=== PATIENT | female | born 1965 | race Hispanic/Latino ===

== ENCOUNTER 2021-05-06 22:59 | Inpatient (IN) | payer SELFPAY ==
[2021-05-06 23:47] LABS: Arterial Blood Carboxyhemoglob 1.3 % (0-1.5); Blood Gas Oxyhemoglobin 89.9 % (94-97); Blood O2 Saturation 91.9 % (92-98.5)
[2021-05-07 00:03] LABS: Absolute Lymphocytes (CBC) 0.7 K/uL (0.7-4.9); Basophils % 0.4 % (0-1.3); Hematocrit 38.1 % (36.0-45.0); Lymphocytes % 10.1 % (15.3-44.8)
--- NOTE | 2021-05-07 00:22 | ER ---
Nurse's Notes [facility] Name: Cynthia Logan Age: 55 yrs Sex: Female : 1965 Arrival Date: 05/06/2021 Time: 23:02 Bed 7 Private MD: Diagnosis: Pneumonia due to SARS-associated coronavirus;Acute respiratory failure with hypoxia Presentation: 05/06 23:18 Chief complaint:. kg 23:20 Initial Sepsis Screen: Does the patient meet any 2 criteria? RR > 20 per min. No. bb Patient's initial sepsis screen is negative. Does the patient have a suspected source of infection? Yes: Productive cough/pneumonia. Risk Assessment: Do you want to hurt yourself or someone else? Patient reports no desire to harm self or others. Onset of symptoms was April 27, 2021. 23:20 Acuity: GENESIS 2 bb 23:32 Chief complaint: Patient states: SOB x 1 week. Diagnosed COVID positive 7 days ago. Pt bb is 57% on RA in triage. Coronavirus screen: Client denies travel out of the [place] in the last 14 days. At this time, unable to obtain information related to travel outside the [place] Client presents with at least one sign or symptom that may indicate coronavirus-19. Standard/surgical mask placed on the client. Provider contacted for isolation considerations. Client reports previous positive COVID test result. Date of collection: April 29, 2021. Ebola Screen: Patient negative for fever greater than or equal to 101.5 degrees Fahrenheit, and additional compatible Ebola Virus Disease symptoms Patient denies exposure to infectious person. Patient denies travel to an Ebola-affected area in the 21 days before illness onset. 23:32 Method Of Arrival: Wheelchair bb Triage Assessment: 23:39 General: Appears in no apparent distress. Behavior is calm, cooperative, quiet. Pain: bb Denies pain. Respiratory: Reports shortness of breath at rest on exertion cough that is productive, Onset: The symptoms/episode began/occurred gradually, the patient has severe shortness of breath. Historical: - Allergies: 23:39 PENICILLINS; bb - PMHx: 23:39 Hypertensive disorder; bb - PSHx: 23:39 None; bb - Immunization history:: Adult Immunizations not up to date, Client reports having NOT received the Covid vaccine. - Social history:: Smoking status: Patient denies any tobacco usage or history of. Screenin/12 00:54 Abuse screen: Denies threats or abuse. Denies injuries from another. Nutritional lp1 screening: No deficits noted. Tuberculosis screening: No symptoms or risk factors identified. Fall Risk None identified. Assessment: 00:15 General: Appears ill, Behavior is appropriate for age. Pain: Denies pain. Neuro: Level lp1 of Consciousness is awake, alert, obeys commands, Oriented to person, place, time, situation. Cardiovascular: Capillary refill < 3 seconds in bilateral fingers toes Patient's skin is warm and dry. Rhythm is regular. Respiratory: Airway is patent Trachea midline Respiratory effort is even, shallow, Breath sounds are diminished in left posterior lower lobe, right posterior middle lobe and right posterior lower lobe. GI: Abdomen is non-distended. : No signs and/or symptoms were reported regarding the genitourinary system. EENT: No signs and/or symptoms were reported regarding the EENT system. Derm: Skin is pink, warm \T\ dry. Musculoskeletal: No deficits noted. 00:52 Reassessment: Patient up to bsc; O2 at 91% on 35L high flow O2. lp1 Vital Signs: 05/06 23:20 BP 151 / 76; Pulse 90; Resp 25; Temp 99.6(O); Pulse Ox 57% on R/A; Weight 117.93 kg bb (R); Height 5 ft. 2 in. (157.48 cm) (R); 05/07 00:15 BP 117 / 65; Pulse 80; Resp 21; Pulse Ox 93% on NC; lp1 01:10 BP 124 / 69; Pulse 81; Resp 30; Pulse Ox 95% on NC; lp1 05/06 23:20 Body Mass Index 47.55 (117.93 kg, 157.48 cm) bb 00:15 high flow at 35% lp1 01:10 35% lp1 ED Course: 05/06 23:02 Patient arrived in ED. es 23:22 Pedro Perez PA is PHCP. jr8 23:22 Yousif Laguerre MD is Attending Physician. jr8 23:39 Triage completed. bb 23:39 Arm band placed on right wrist. bb 23:45 Inserted saline lock: 20 gauge in left antecubital area, using aseptic technique. Blood ds4 collected. 23:54 CXR XRAY In Process Unspecified. EDMS 05/07 00:00 Patient has correct armband on for positive identification. Placed in gown. Bed in low lp1 position. Call light in reach. compliance monitor on. Pulse ox on. NIBP on. 00:02 Sole Bell, RN is Primary Nurse. lp1 00:20 Catracho Tovar MD is Hospitalizing Provider. jr8 00:21 Hospitalizing Provider role handed off by Catracho Tovar MD jr8 00:21 Mark Jacome is Hospitalizing Provider. jr8 01:09 No provider procedures requiring assistance completed. Patient admitted, IV remains in lp1 place. 07:32 Primary Nurse role handed off by Sole Bell, TORREY bp 07:32 Reinaldo Milner, TORREY is Primary Nurse. bp 05/09 19:27 Primary Nurse role handed off by Reinaldo Milner, RN mw2 Administered Medications: No medications were administered Outcome: 05/07 00:21 Decision to Hospitalize by Provider. jr8 01:09 Condition: stable lp1 01:09 Instructed on the need for admit. 01:36 Admitted to ER Hold. Please see [facility] for further documentation. lp1 05/09 21:50 Patient left the ED. ea Signatures: Dispatcher [employer] EDCarmen Rahman Brenda, RN RN Sole Pina, RN RN lp1 Pedro Perez PA PA jr8 Alexander Wade ds4 Dominique Coats RN RN ea Peltier, Brian, RN RN Rosa Sky mw2 Johanna Cristina RN RN kg Corrections: (The following items were deleted from the chart) 05/07 00:54 00:52 Reassessment: Patient up to bsc; O2 at 91% lp1 lp1
--- NOTE | 2021-05-07 00:22 | EDPHYS ---
Physician Documentation [facility] Name: Cynthia Logan Age: 55 yrs Sex: Female : 1965 Arrival Date: 05/06/2021 Time: 23:02 Bed 7 Private MD: ED Physician Yousif Laguerre HPI: 05/06 23:57 This 55 yrs old Female presents to ER via Wheelchair with complaints of + for jr8 covid, Breathing Difficulty. 23:57 The patient has shortness of breath at rest. Onset: The symptoms/episode began/occurred jr8 gradually, 1 week(s) ago. Duration: The symptoms are continuous, and are steadily getting worse. The patient's shortness of breath is aggravated by light activity. Associated signs and symptoms: The patient has no apparent associated signs or symptoms. Severity of symptoms: At their worst the symptoms were moderate in the emergency department the symptoms are unchanged. The patient has not experienced similar symptoms in the past. The patient has not recently seen a physician. Patient stated that she was diagnosed about 1 week ago with Covid. Has had mild shortness of breath since then with on and off fevers and mild diarrhea. Stated that most symptoms have been relieved but continues to have now increased worsening of shortness of breath. Patient upon arrival to emergency room was 57% on room air. Historical: - Allergies: 23:39 PENICILLINS; bb - PMHx: 23:39 Hypertensive disorder; bb - PSHx: 23:39 None; bb - Immunization history:: Adult Immunizations not up to date, Client reports having NOT received the Covid vaccine. - Social history:: Smoking status: Patient denies any tobacco usage or history of. ROS: 23:57 Eyes: Negative for injury, pain, redness, and discharge, ENT: Negative for injury, jr8 pain, and discharge, Neck: Negative for injury, pain, and swelling, Cardiovascular: Negative for chest pain, palpitations, and edema, Abdomen/GI: Negative for abdominal pain, nausea, vomiting, and constipation. Positive for diarrhea Back: Negative for injury and pain, MS/Extremity: Negative for injury and deformity, Skin: Negative for injury, rash, and discoloration, Neuro: Negative for headache, weakness, numbness, tingling, and seizure. 23:57 Constitutional: Positive for fever. 23:57 Respiratory: Positive for dyspnea on exertion, shortness of breath. Exam: 23:57 ENT: Nares patent. No nasal discharge, no septal abnormalities noted. Tympanic jr8 membranes are normal and external auditory canals are clear. Oropharynx with no redness, swelling, or masses, exudates, or evidence of obstruction, uvula midline. Mucous membranes moist. Neck: Trachea midline, no thyromegaly or masses palpated, and no cervical lymphadenopathy. Supple, full range of motion without nuchal rigidity, or vertebral point tenderness. No Meningismus. Cardiovascular: Regular rate and rhythm with a normal S1 and S2. No gallops, murmurs, or rubs. Normal PMI, no JVD. No pulse deficits. Abdomen/GI: Soft, non-tender, with normal bowel sounds. No distension or tympany. No guarding or rebound. No evidence of tenderness throughout. Skin: Warm, dry with normal turgor. Normal color with no rashes, no lesions, and no evidence of cellulitis. MS/ Extremity: Pulses equal, no cyanosis. Neurovascular intact. Full, normal range of motion. Neuro: Awake and alert, GCS 15, oriented to person, place, time, and situation. Cranial nerves II-XII grossly intact. Motor strength 5/5 in all extremities. Sensory grossly intact. 23:57 Constitutional: The patient appears alert, awake, uncomfortable. 23:57 Respiratory: mild respiratory distress is noted, Respirations: tachypnea, that is mild, Breath sounds: are clear throughout. Vital Signs: 23:20 BP 151 / 76; Pulse 90; Resp 25; Temp 99.6(O); Pulse Ox 57% on R/A; Weight 117.93 kg bb (R); Height 5 ft. 2 in. (157.48 cm) (R); 05/07 00:15 BP 117 / 65; Pulse 80; Resp 21; Pulse Ox 93% on NC; lp1 01:10 BP 124 / 69; Pulse 81; Resp 30; Pulse Ox 95% on NC; lp1 05/06 23:20 Body Mass Index 47.55 (117.93 kg, 157.48 cm) bb 00:15 high flow at 35% lp1 01:10 35% lp1 MDM: 05/06 23:22 Patient medically screened. jr8 05/07 00:20 Data reviewed: vital signs, nurses notes, lab test result(s), EKG, radiologic studies, [facility] plain films. Data interpreted: Pulse oximetry: on room air is 57 %. Interpretation: hypoxia. Counseling: I had a detailed discussion with the patient and/or guardian regarding: the historical points, exam findings, and any diagnostic results supporting the discharge/admit diagnosis, lab results, radiology results, the need for further work-up and treatment in the hospital. 05/06 23:32 Order name: BMP; Complete Time: 00:48 05/06 23:32 Order name: Blood Culture Adult (2); Complete Time: 12:43 05/06 23:32 Order name: C-Reactive Protein; Complete Time: 00:48 05/06 23:32 Order name: CBC with Diff; Complete Time: 00:05 05/06 23:32 Order name: D-Dimer; Complete Time: 00:04 05/06 23:32 Order name: Ferritin; Complete Time: 00:48 05/06 23:32 Order name: LFT's; Complete Time: 00:48 05/06 23:32 Order name: Lactate; Complete Time: 00:40 05/06 23:32 Order name: PT-INR; Complete Time: 00:04 05/06 23:32 Order name: Procalcitonin; Complete Time: 00:48 05/06 23:32 Order name: Ptt, Activated; Complete Time: 00:04 05/06 23:32 Order name: Troponin (emerg Dept Use Only); Complete Time: 00:48 05/06 23:32 Order name: ABG; Complete Time: 00:00 05/07 00:52 Order name: COVID-19 : Document "Date of Symptom Onset" if Symptomatic. lp1 05/07 00:58 Order name: CORONAVIRUS EDHI 05/07 01:54 Order name: SARS-COV-2 RT PCR; Complete Time: 06:56 EDMS 05/07 06:08 Order name: Comprehensive Metabolic Panel; Complete Time: 06:56 EDMS 05/07 06:08 Order name: Phosphorus; Complete Time: 06:56 EDMS 05/07 06:08 Order name: Magnesium; Complete Time: 06:56 EDMS 05/07 06:12 Order name: Hemoglobin A1c; Complete Time: 06:56 EDMS 05/07 07:25 Order name: Procalcitonin; Complete Time: 12:43 EDMS 05/07 12:54 Order name: Glucose, Ancillary Testing; Complete Time: 12:43 EDMS 05/07 18:28 Order name: Glucose, Ancillary Testing; Complete Time: 12:43 EDMS 05/07 22:21 Order name: Glucose, Ancillary Testing; Complete Time: 12:43 EDMS 05/08 06:39 Order name: Comprehensive Metabolic Panel; Complete Time: 12:43 EDMS 05/08 06:39 Order name: Phosphorus; Complete Time: 12:43 EDMS 05/08 06:39 Order name: Lipid Profile; Complete Time: 12:43 EDMS 05/08 06:39 Order name: T4 Free; Complete Time: 12:43 EDMS 05/08 06:39 Order name: Magnesium; Complete Time: 12:43 EDMS 05/08 06:39 Order name: Ferritin; Complete Time: 12:43 EDMS 05/06 23:32 Order name: CXR XRAY; Complete Time: 12:43 jr8 05/06 23:32 Order name: EKG; Complete Time: 23:33 8 05/06 23:32 Order name: Cardiac monitoring; Complete Time: 23:48 8 05/06 23:32 Order name: Droplet/Contact Precautions; Complete Time: 23:48 8 05/06 23:32 Order name: EKG - Nurse/Tech; Complete Time: 23:48 8 05/06 23:32 Order name: IV Start; Complete Time: 23:48 8 05/06 23:32 Order name: Labs collected and sent; Complete Time: 23:48 8 05/06 23:32 Order name: O2 Per Protocol; Complete Time: 23:48 8 05/06 23:32 Order name: O2 Sat Monitoring; Complete Time: 23:49 8 05/07 00:34 Order name: CONS Physician Consult EDMS 05/08 06:41 Order name: C-Reactive Protein; Complete Time: 12:43 EDMS 05/08 06:41 Order name: Thyroid Stimulating Hormone; Complete Time: 12:43 EDMS 05/08 08:41 Order name: Glucose, Ancillary Testing; Complete Time: 12:43 EDMS 05/08 12:24 Order name: Glucose, Ancillary Testing; Complete Time: 12:43 EDMS 05/08 16:47 Order name: Glucose, Ancillary Testing; Complete Time: 12:43 EDMS 05/08 21:28 Order name: Glucose, Ancillary Testing; Complete Time: 12:43 EDMS 05/09 06:15 Order name: Basic Metabolic Panel; Complete Time: 12:43 EDMS 05/09 06:44 Order name: CBC with Automated Diff; Complete Time: 12:43 EDMS 05/09 08:59 Order name: RAD; Complete Time: 12:43 EDMS 05/09 09:08 Order name: Glucose, Ancillary Testing; Complete Time: 12:43 EDMS 05/09 14:20 Order name: Glucose, Ancillary Testing; Complete Time: 12:43 EDMS 05/09 16:53 Order name: Glucose, Ancillary Testing; Complete Time: 12:43 EDMS 05/09 16:54 Order name: Glucose, Ancillary Testing; Complete Time: 12:43 EDMS Administered Medications: No medications were administered Disposition Summary: 05/07/21 00:21 Hospitalization Ordered Hospitalization Status: Inpatient Admission 8 Provider: Mark Jacome [facility] Condition: Fair jr Problem: new jr8 Symptoms: have improved jr8 Bed/Room Type: Standard [facility] Location: Telemetry/MedSurg (Inpatient)(05/09/21 18:38) Room Assignment: 428(05/09/21 18:38) Diagnosis - Pneumonia due to SARS-associated coronavirus jr8 - Acute respiratory failure with hypoxia jr8 Forms: - Medication Reconciliation Form jr8 - SBAR form jr8 Addendum: 05/13/2021 07:18 Co-signature as Attending Physician, Yousif Laguerre MD. r n Signatures: Dispatcher [employer] [facility] Monica Larose RN RN dw Ballard, Brenda, RN RN bb Nieto, Roman, MD MD rn Roszak, Josh, PA PA 8 Priyanka Yepez RN RN tl1 Corrections: (The following items were deleted from the chart) 05/07 02:04 00:21 Telemetry/MedSurg (Inpatient) jr8 tl1 02:04 00:21 jr8 tl1 05/09 18:38 0812 02:04 [facility] ER HOLD tl1 dw 05/09 18:38 08/12 02:04 ERHOLD- tl1 dw
[2021-05-07 00:42] LABS: ALT/SGPT 37 U/L (12-78); AST/SGOT 43 U/L (15-37); Albumin 2.9 g/dL (3.4-5.0); Alkaline Phosphatase 147 U/L (45-117); BUN Blood Urea Nitrogen 21 mg/dL (7-18); Bicarbonate 23 mmol/L (21-32); Bilirubin Direct 0.2 mg/dL (0-0.2); Bilirubin Total 0.5 mg/dL (0.2-1.0); Ferritin 199.1 ng/mL (8-388); Glucose Level 200 mg/dL (74-106); Potassium 3.8 mmol/L (3.5-5.1); Sodium Level 132 mmol/L (136-145); Troponin (Emerg Dept Use Only) < 0.02 ng/mL (0.0-0.045)
--- NOTE | 2021-05-07 01:49 | P.HP ---
Certification for Inpatient Patient admitted to: Inpatient With expected LOS: >2 Midnights Patient will require the following post-hospital care: None Practitioner: I am a practitioner with admitting privileges, knowledge of patient current condition, hospital course, and medical plan of care. Services: Services provided to patient in accordance with Admission requirements found in Title 42 Section 412.3 of the Code of Federal Regulations Patient History Date of Service: 05/07/21 Reason for admission: covid pneumonia History of Present Illness: Ms. Logan is a 55 yo F with HTN who presents with 9 days of SOB and cough. She tested positive for COVID 7 days ago. Presented to the ED with sats 57% on room air. Now stable on HFNC. She reports fever, wheezing, pleuritic pain and diarrhea. NA 132, BUN 21, GFR 65, Glu 200, AST 43, alk phos 147, CRP 121, Albumin 2.9. - Past Medical/Surgical History Diabetic: No -: HTN -: cholecystectomy - Family History Mother -: Diabetes - Social History Smoking Status: Never smoker Alcohol use: No CD- Drugs: No Caffeine use: Yes Place of Residence: Home Review of Systems General: Fever Respiratory: Cough, Shortness of Breath, Pleuritic Pain, Wheezing Gastrointestinal: Diarrhea Physical Examination - Physical Exam General: Alert, In no apparent distress HEENT: Atraumatic, PERRLA, Mucous membr. moist/pink, EOMI, Sclerae nonicteric Neck: Supple, 2+ carotid pulse no bruit, No LAD, Without JVD or thyroid abnormality Respiratory: Diminished, Rhonchi/gurgles Cardiovascular: Regular rate/rhythm, Normal S1 S2 Gastrointestinal: Normal bowel sounds, No tenderness Musculoskeletal: No tenderness Integumentary: No rashes Neurological: Normal gait, Normal speech, Normal strength at 5/5 x4 extr, Normal tone, Normal affect Lymphatics: No axilla or inguinal lymphadenopathy - Studies Laboratory Data (last 24 hrs) 05/06/21 23:45: PT 11.5, INR 1.00, APTT 21.9 L 05/06/21 23:45: WBC 7.20, Hgb 12.4, Hct 38.1, Plt Count 181 05/06/21 23:45: Sodium 132 L, Potassium 3.8, BUN 21 H, Creatinine 0.90, Glucose 200 H, Total Bilirubin 0.5, AST 43 H, ALT 37, Alkaline Phosphatase 147 H Assessment and Plan - Problems (Diagnosis) (1) Pneumonia due to COVID-19 virus Current Visit: Yes Status: Acute (2) HTN (hypertension) Current Visit: Yes Status: Chronic Qualifiers: Hypertension type: primary hypertension Qualified Code(s): I10 - Essential (primary) hypertension - Plan pulm consult, respiratory therapy consulted continue O2, IV steroids, covid supplements, ivermectin requested barcitinib therapy from pharmacy BP stable, continue to monitor A1c pending, sliding scale insulin and accuchecks DVT ppx Discharge Plan: Home Plan to discharge in: Greater than 2 days - Advance Directives Does patient have a Living Will: No Does patient have a Durable POA for Healthcare: No - Code Status/Comfort Care Code Status Assessed: Yes (full code ) Critical Care: No Time Spent Managing Pts Care (In Minutes): 70
[2021-05-07] MEDS ORDERED: ALBUTEROL 2.5 MG/3 ML NEB SOL NEB PRN (05:06)
[2021-05-07] MEDS ORDERED: MELATONIN 5 MG TABLET PO PRN (05:06)
[2021-05-07] MEDS ORDERED: D50W 25 GM/50 ML SYRINGE IV PRN (05:06)
[2021-05-07] MEDS ORDERED: GLUCAGON 1 MG/VIAL IM PRN (05:06)
[2021-05-07] MEDS ORDERED: BENZONATATE 100 MG CAP PO PRN (05:06)
[2021-05-07] MEDS ORDERED: ACETAMINOPHEN 500 MG TAB PO PRN (05:06)
[2021-05-07] MEDS ORDERED: MORPHINE 2 MG/ML SYR IV PRN (05:06)
[2021-05-07] MEDS ORDERED: ONDANSETRON 4 MG/2 ML VIAL IV PRN (05:06)
[2021-05-07 06:08] LABS: Albumin 2.7 g/dL (3.4-5.0); Bilirubin Total 0.4 mg/dL (0.2-1.0); Magnesium 2.6 mg/dL (1.8-2.4); Phosphorus 3.2 mg/dL (2.5-4.9); Potassium 3.6 mmol/L (3.5-5.1); Protein, Total 7.5 g/dL (6.4-8.2)
[2021-05-07] MEDS ORDERED: BENZONATATE 100 MG CAP PO ONE (06:26)
[2021-05-07] MEDS ORDERED: ACETAMINOPHEN 500 MG TAB ONE (06:26)
[2021-05-07 06:37] VITALS: BMI 49.1
[2021-05-07] MEDS ORDERED: POTASSIUM 25 MEQ EFFERV TAB PO ONE (07:28)
[2021-05-07] MEDS: INSULIN -REGULAR HUMAN 50 UNIT/0.5 ML ML SQ SCH ×4 (07:30→22:15)
--- NOTE | 2021-05-07 07:30 | RAD REPORT ---
EXAM DESCRIPTION: RAD - Chest Single View - 05/06/2021 11:54 pm CLINICAL HISTORY: DYSPNEA COMPARISON: No comparisons FINDINGS: Low lung volumes with widespread bilateral airspace disease. Cardiomegaly.No acute osseous abnormality. No significant pleural effusions or pneumothorax. IMPRESSION: Widespread bilateral airspace disease could reflect multifocal pneumonia and/or edema.
[2021-05-07] MEDS: ASPIRIN EC 81 MG TAB PO SCH (09:00)
[2021-05-07] MEDS: VITAMIN D 1000 UNIT TAB PO SCH (09:00)
[2021-05-07] MEDS ORDERED: METHYLPREDNISOLONE 125 MG INJ IV SCH (09:00)
[2021-05-07] MEDS: BARICITINIB 2 MG TABLET PO SCH (09:00)
[2021-05-07] MEDS: ASCORBIC ACID 500 MG TABLET PO SCH ×4 (09:00→22:15)
[2021-05-07] MEDS: THIAMINE HCL 100 MG TABLET PO SCH (09:00)
[2021-05-07] MEDS: FAMOTIDINE 20 MG TAB PO SCH ×2 (09:00→22:15)
[2021-05-07] MEDS: ZINC SULFATE 220 MG CAP PO SCH (09:00)
[2021-05-07] MEDS: IVERMECTIN 3 MG TABLET PO SCH (10:00)
[2021-05-07] MEDS ORDERED: METHYLPREDNISOLONE 125 MG INJ ONE ×2 (10:07→15:59)
[2021-05-07] MEDS ORDERED: ASCORBIC ACID 500 MG TABLET ONE ×3 (10:08→22:36)
[2021-05-07] MEDS ORDERED: FAMOTIDINE 20 MG/2 ML VIAL IV ONE (10:08)
[2021-05-07] MEDS ORDERED: VITAMIN D 1000 UNIT TAB ONE (10:08)
[2021-05-07] MEDS ORDERED: POTASSIUM 25 MEQ EFFERV TAB ONE (10:08)
[2021-05-07] MEDS ORDERED: THIAMINE HCL 100 MG TABLET ONE (10:08)
--- NOTE | 2021-05-07 11:05 | P.CNS ---
Date of Consult: 05/07/21 Reason for Consult: resp failure fron COVID Chief Complaint: covid pneumonia History of Present Illness: AGe 55 AW COVID penumonia. Dx 7 days ago/ Stable on High concentration of FIO2 Allergies Penicillins Allergy (Severe, Verified 05/07/21 06:37) Anaphylaxis Home Medications: NK [No Home Meds] 05/07/21 - Past Medical/Surgical History Diabetic: No -: HTN -: cholecystectomy - Family History Mother Medical History: Diabetes - Social History Alcohol use: No CD- Drugs: No Caffeine use: Yes Place of Residence: Home Review of Systems General: Weakness Respiratory: Shortness of Breath Physical Examination Temp Pulse Resp BP Pulse Ox 98.9 F 79 21 H 139/73 91 05/07/21 04:00 05/07/21 04:00 05/07/21 04:00 05/07/21 04:00 05/07/21 04:00 General: Alert, Oriented x3, Cooperative Laboratory Data (last 24 hrs) 05/06/21 23:45: PT 11.5, INR 1.00, APTT 21.9 L 05/06/21 23:45: WBC 7.20, Hgb 12.4, Hct 38.1, Plt Count 181 05/06/21 23:45: Sodium 132 L, Potassium 3.8, BUN 21 H, Creatinine 0.90, Glucose 200 H, Total Bilirubin 0.5, AST 43 H, ALT 37, Alkaline Phosphatase 147 H - Problems (1) Pneumonia due to COVID-19 virus Current Visit: Yes Status: Acute Plan: age 55 AW COVID pneumonia/ meds labs reviewed/ Inc Steroids
[2021-05-07] MEDS: METHYLPREDNISOLONE 125 MG INJ IV SCH ×2 (14:00→22:15)
[2021-05-07] MEDS ORDERED: RIVAROXABAN 20 MG TABLET PO ONE (15:59)
[2021-05-07] MEDS ORDERED: ASPIRIN EC 81 MG TAB PO ONE (15:59)
[2021-05-07] MEDS: RIVAROXABAN 20 MG TABLET PO SCH (17:00)
[2021-05-07] MEDS ORDERED: RIVAROXABAN 10 MG TABLET PO SCH (17:00)
--- NOTE | 2021-05-07 18:44 | P.PN ---
Date of Service: 05/07/21 Patient seen and examined. She is currently on high-flow oxygen. Nonlabored breathing on examination. Diagnosis: COVID pneumonia Acute respiratory failure with hypoxia. Plan: COVID protocol with IV steroid, vitamin supplementation. Patient also started on Baracitinib. Wean oxygen as tolerated.
[2021-05-07] MEDS ORDERED: INSULIN -REGULAR HUMAN 50 UNIT/0.5 ML ML ONE (22:35)
[2021-05-07] MEDS ORDERED: METHYLPREDNISOLONE 40 MG INJ ONE (22:36)
[2021-05-07] MEDS ORDERED: FAMOTIDINE 20 MG TAB ONE (22:37)
[2021-05-08 06:39] LABS: Albumin 2.7 g/dL (3.4-5.0); Bilirubin Total 0.4 mg/dL (0.2-1.0); Ferritin 194.2 ng/mL (8-388); Magnesium 2.8 mg/dL (1.8-2.4); Phosphorus 3.9 mg/dL (2.5-4.9); Potassium 4.1 mmol/L (3.5-5.1); Protein, Total 7.8 g/dL (6.4-8.2)
[2021-05-08 06:40] LABS: Thyroid Stimulating Hormone 0.352 uIU/mL (0.360-3.740)
[2021-05-08] MEDS: INSULIN -REGULAR HUMAN 50 UNIT/0.5 ML ML SQ SCH ×4 (07:30→21:00)
[2021-05-08] MEDS: ASCORBIC ACID 500 MG TABLET PO SCH ×4 (09:00→21:00)
[2021-05-08] MEDS: FAMOTIDINE 20 MG TAB PO SCH ×2 (09:00→21:00)
[2021-05-08] MEDS: BARICITINIB 2 MG TABLET PO SCH (09:00)
[2021-05-08] MEDS: ASPIRIN EC 81 MG TAB PO SCH (09:00)
[2021-05-08] MEDS: VITAMIN D 1000 UNIT TAB PO SCH (09:00)
[2021-05-08] MEDS: THIAMINE HCL 100 MG TABLET PO SCH (09:00)
[2021-05-08] MEDS: METHYLPREDNISOLONE 125 MG INJ IV SCH ×3 (09:00→21:00)
[2021-05-08] MEDS: ZINC SULFATE 220 MG CAP PO SCH (09:00)
[2021-05-08] MEDS ORDERED: METHYLPREDNISOLONE 125 MG INJ ONE ×2 (10:18→17:59)
[2021-05-08] MEDS ORDERED: ZINC SULFATE 220 MG CAP ONE (10:19)
[2021-05-08] MEDS ORDERED: ASCORBIC ACID 500 MG TABLET ONE ×3 (10:19→22:13)
[2021-05-08] MEDS ORDERED: THIAMINE HCL 100 MG TABLET ONE (10:19)
[2021-05-08] MEDS ORDERED: ASPIRIN EC 81 MG TAB PO ONE (10:19)
[2021-05-08] MEDS ORDERED: FAMOTIDINE 20 MG TAB ONE ×2 (10:20→22:13)
[2021-05-08] MEDS ORDERED: VITAMIN D 1000 UNIT TAB ONE (10:20)
[2021-05-08] MEDS ORDERED: INSULIN -REGULAR HUMAN 50 UNIT/0.5 ML ML ONE ×3 (10:20→22:11)
--- NOTE | 2021-05-08 14:17 | P.PN ---
Subjective Date of Service: 05/08/21 Chief Complaint: covid pneumonia Patient currently on high-flow oxygen. Physical Examination - Vital Signs Temperature: 98.0 F Blood Pressure: 125/68 Pulse: 56 Respirations: 28 Pulse Ox (%): 97 - Physical Exam General: Alert, In no apparent distress Neck: JVD not distended Respiratory: Other (Nonlabored breathing) Cardiovascular: Regular rate/rhythm, Normal S1 S2 Gastrointestinal: Soft and benign, Non-distended Musculoskeletal: No swelling Integumentary: No rashes Neurological: Normal strength at 5/5 x4 extr - Studies Microbiology Data (last 24 hrs): 05/06/21 23:45 Blood - Blood Anaerobic Blood Culture - Final 05/06/21 23:45 Blood - Blood Anaerobic Blood Culture - Final Assessment And Plan - Current Problems (Diagnosis) (1) Acute respiratory failure with hypoxia Current Visit: Yes Status: Acute (2) Pneumonia due to COVID-19 virus Current Visit: Yes Status: Acute (3) HTN (hypertension) Current Visit: Yes Status: Chronic Qualifiers: Hypertension type: primary hypertension Qualified Code(s): I10 - Essential (primary) hypertension - Plan Patient requiring high-flow oxygen. Continue on COVID protocol with IV steroid, vitamin supplementation. Pulmonary is following. Patient on Baracitinib. Monitor inflammatory markers-ferritin and CRP. Titrate oxygen.
[2021-05-08] MEDS: RIVAROXABAN 20 MG TABLET PO SCH (17:00)
[2021-05-08] MEDS ORDERED: RIVAROXABAN 20 MG TABLET PO ONE (18:00)
--- NOTE | 2021-05-08 22:26 | P.PN ---
Subjective Date of Service: 05/08/21 Chief Complaint: covid pneumonia NC on High conc of Fio2 Review of Systems Respiratory: Shortness of Breath Physical Examination - Vital Signs Temperature: 98.0 F Blood Pressure: 122/59 Pulse: 58 Respirations: 21 Pulse Ox (%): 98 - Physical Exam General: Alert, In no apparent distress, Mild distress - Studies Microbiology Data (last 24 hrs): 05/06/21 23:45 Blood - Blood Anaerobic Blood Culture - Final 05/06/21 23:45 Blood - Blood Anaerobic Blood Culture - Final Assessment & Plan - Problems (Diagnosis) (1) Pneumonia due to COVID-19 virus Current Visit: Yes Status: Acute Plan: Resp failure ext covid penumoniaon steroids and barcitinib/ MAx therapy/ RA sat documented as 87%. Check sat on4 -6 l of NC O2
[2021-05-09 06:14] LABS: Potassium 3.9 mmol/L (3.5-5.1)
[2021-05-09 06:42] LABS: Absolute Lymphocytes (CBC) 0.7 K/uL (0.7-4.9); Basophils % 0.1 % (0-1.3); Hematocrit 36.1 % (36.0-45.0); Lymphocytes % 11.2 % (15.3-44.8); MPV 8.6 fL (7.6-11.3); RBC Red Blood Cell Count 4.83 M/uL (3.86-4.86)
[2021-05-09] MEDS ORDERED: ASCORBIC ACID 500 MG TABLET ONE ×3 (08:12→18:03)
[2021-05-09] MEDS ORDERED: ASPIRIN 81 MG CHEWABLE TABLET ONE (08:12)
[2021-05-09] MEDS ORDERED: ZINC SULFATE 220 MG CAP ONE (08:12)
[2021-05-09] MEDS ORDERED: THIAMINE HCL 100 MG TABLET ONE (08:12)
[2021-05-09] MEDS ORDERED: FAMOTIDINE 20 MG TAB ONE (08:13)
[2021-05-09] MEDS ORDERED: METHYLPREDNISOLONE 40 MG INJ ONE ×2 (08:13→14:52)
[2021-05-09] MEDS ORDERED: VITAMIN D 1000 UNIT TAB ONE (08:13)
--- NOTE | 2021-05-09 08:59 | RAD REPORT ---
EXAM DESCRIPTION: RAD - Chest Single View - 05/09/2021 7:01 am CLINICAL HISTORY: penumonia COMPARISON: May 06 TECHNIQUE: AP portable chest image was obtained 05/09/2021 7:01 am . FINDINGS: Extensive bilateral pneumonia findings are present. Aeration has improved slightly from th e comparison. Extent of lung disease is not clearly different from prior study. Trachea is midline. Heart and vasculature are normal. No measurable pleural effusion and no pneumotho rax. No acute bony abnormality seen. No acute aortic findings suspected. IMPRESSION: Extensive bilateral pneumonia findings not substantially different from comparison.
[2021-05-09] MEDS: METHYLPREDNISOLONE 125 MG INJ IV SCH ×3 (09:00→22:12)
[2021-05-09] MEDS: VITAMIN D 1000 UNIT TAB PO SCH (09:00)
[2021-05-09] MEDS: FAMOTIDINE 20 MG TAB PO SCH ×2 (09:00→22:11)
[2021-05-09] MEDS: BARICITINIB 2 MG TABLET PO SCH (09:00)
[2021-05-09] MEDS: THIAMINE HCL 100 MG TABLET PO SCH (09:00)
[2021-05-09] MEDS: ASPIRIN EC 81 MG TAB PO SCH (09:00)
[2021-05-09] MEDS: ZINC SULFATE 220 MG CAP PO SCH (09:00)
[2021-05-09] MEDS: ASCORBIC ACID 500 MG TABLET PO SCH ×4 (09:00→22:12)
[2021-05-09] MEDS: INSULIN -REGULAR HUMAN 50 UNIT/0.5 ML ML SQ SCH ×4 (09:20→22:12)
[2021-05-09] MEDS ORDERED: INSULIN -REGULAR HUMAN 50 UNIT/0.5 ML ML ONE ×3 (09:28→18:05)
[2021-05-09] MEDS: IVERMECTIN 3 MG TABLET PO SCH (10:00)
[2021-05-09] MEDS ORDERED: D50W 25 GM/50 ML SYRINGE IV PRN (13:31)
[2021-05-09] MEDS ORDERED: GLUCAGON 1 MG/VIAL IM PRN (13:31)
--- NOTE | 2021-05-09 13:35 | P.PN ---
Subjective Date of Service: 05/09/21 Chief Complaint: covid pneumonia Patient currently on high-flow oxygen but FiO2 and flow rates are trending down. She has no complain. She denies shortness of breath. Physical Examination - Vital Signs Temperature: 98.1 F Blood Pressure: 121/53 Pulse: 62 Respirations: 18 Pulse Ox (%): 86 - Physical Exam General: Alert, In no apparent distress, Oriented x3 Neck: JVD not distended Respiratory: Other (Nonlabored breathing) Cardiovascular: Regular rate/rhythm, Normal S1 S2 Gastrointestinal: Soft and benign, Non-distended Musculoskeletal: No swelling Integumentary: No rashes Neurological: Normal strength at 5/5 x4 extr Assessment And Plan - Current Problems (Diagnosis) (1) Acute respiratory failure with hypoxia Current Visit: Yes Status: Acute (2) Pneumonia due to COVID-19 virus Current Visit: Yes Status: Acute (3) HTN (hypertension) Current Visit: Yes Status: Chronic Qualifiers: Hypertension type: primary hypertension Qualified Code(s): I10 - Essential (primary) hypertension - Plan Wean FiO2 and flow rates as tolerated Continue on COVID protocol with IV steroid, vitamin supplementation. Pulmonary is following. Patient on Baracitinib. Monitor inflammatory markers-ferritin and CRP. Continue sliding scale scale. Added Lantus insulin to improve her blood sugar readings.
[2021-05-09] MEDS ORDERED: INSULIN GLARGINE 100 UNITS/ML SQ SCH (17:00)
[2021-05-09] MEDS: RIVAROXABAN 20 MG TABLET PO SCH (17:00)
[2021-05-09] MEDS ORDERED: RIVAROXABAN 20 MG TABLET PO ONE (18:04)
[2021-05-09] MEDS ORDERED: INSULIN GLARGINE 100 UNITS/ML SQ ONE (18:04)
[2021-05-09] MEDS ORDERED: INSULIN -REGULAR HUMAN 50 UNIT/0.5 ML ML SQ SCH (23:09)
[2021-05-10] MEDS: INSULIN -REGULAR HUMAN 50 UNIT/0.5 ML ML SQ SCH ×4 (09:06→21:40)
[2021-05-10] MEDS: ZINC SULFATE 220 MG CAP PO SCH (09:07)
[2021-05-10] MEDS: VITAMIN D 1000 UNIT TAB PO SCH (09:08)
[2021-05-10] MEDS: FAMOTIDINE 20 MG TAB PO SCH ×2 (09:08→21:40)
[2021-05-10] MEDS: THIAMINE HCL 100 MG TABLET PO SCH (09:09)
[2021-05-10] MEDS: ASPIRIN EC 81 MG TAB PO SCH (09:09)
[2021-05-10] MEDS: ASCORBIC ACID 500 MG TABLET PO SCH ×4 (09:09→21:40)
[2021-05-10] MEDS: METHYLPREDNISOLONE 125 MG INJ IV SCH ×3 (09:10→21:40)
[2021-05-10] MEDS: BARICITINIB 2 MG TABLET PO SCH (12:38)
[2021-05-10] MEDS ORDERED: FUROSEMIDE 20 MG/ 2ML VIAL IV ONE (14:02)
--- NOTE | 2021-05-10 14:04 | P.PN ---
Subjective Date of Service: 05/10/21 Chief Complaint: covid pneumonia Improving/ Still has highconc of O2 Review of Systems General: Weakness Respiratory: Shortness of Breath Physical Examination - Vital Signs Temperature: 98.2 F Blood Pressure: 172/84 Pulse: 66 Respirations: 38 Pulse Ox (%): 95 - Physical Exam General: Alert, Cooperative Assessment & Plan - Problems (Diagnosis) (1) Pneumonia due to COVID-19 virus Current Visit: Yes Status: Acute Plan: Still onhigh concentration of Fio2/ on Max Tx/labsrev/Lasix x1/ CXRY worse?
[2021-05-10] MEDS: RIVAROXABAN 20 MG TABLET PO SCH (16:43)
[2021-05-10] MEDS: INSULIN GLARGINE 100 UNITS/ML SQ SCH (16:44)
[2021-05-11 05:34] LABS: Absolute Lymphocytes (CBC) 0.6 K/uL (0.7-4.9); Basophils % 0.1 % (0-1.3); Hematocrit 36.7 % (36.0-45.0); Lymphocytes % 6.4 % (15.3-44.8); MPV 8.2 fL (7.6-11.3); RBC Red Blood Cell Count 4.91 M/uL (3.86-4.86)
[2021-05-11 05:52] LABS: Potassium 4.2 mmol/L (3.5-5.1)
[2021-05-11] MEDS: INSULIN -REGULAR HUMAN 50 UNIT/0.5 ML ML SQ SCH ×4 (08:12→20:35)
[2021-05-11] MEDS: FAMOTIDINE 20 MG TAB PO SCH ×2 (08:13→20:38)
[2021-05-11] MEDS: ASPIRIN EC 81 MG TAB PO SCH (08:13)
[2021-05-11] MEDS: ZINC SULFATE 220 MG CAP PO SCH (08:14)
[2021-05-11] MEDS: METHYLPREDNISOLONE 125 MG INJ IV SCH ×3 (08:14→20:38)
[2021-05-11] MEDS: BARICITINIB 2 MG TABLET PO SCH (08:14)
[2021-05-11] MEDS: THIAMINE HCL 100 MG TABLET PO SCH (08:14)
[2021-05-11] MEDS: VITAMIN D 1000 UNIT TAB PO SCH (08:14)
[2021-05-11] MEDS: ASCORBIC ACID 500 MG TABLET PO SCH ×4 (08:15→20:38)
[2021-05-11 09:48] LABS: Blood Morphology Comment NOT SEEN (NOT SEEN); Platelet Estimate ADEQ
[2021-05-11] MEDS: RIVAROXABAN 20 MG TABLET PO SCH (16:35)
[2021-05-11] MEDS: INSULIN GLARGINE 100 UNITS/ML SQ SCH (16:36)
--- NOTE | 2021-05-11 17:25 | P.PN ---
Subjective Date of Service: 05/10/21 Chief Complaint: covid pneumonia No changes from yesterday. No change in FiO2 requirement on the high-flow. She has no complain. Physical Examination - Vital Signs Temperature: 97.9 F Blood Pressure: 139/64 Pulse: 68 Respirations: 18 Pulse Ox (%): 92 - Physical Exam General: Alert, In no apparent distress Neck: JVD not distended Respiratory: Other (Nonlabored breathing.) Cardiovascular: No edema, Regular rate/rhythm, Normal S1 S2 Gastrointestinal: Soft and benign, Non-distended Musculoskeletal: No swelling Integumentary: No rashes Neurological: Normal strength at 5/5 x4 extr Assessment And Plan - Current Problems (Diagnosis) (1) Acute respiratory failure with hypoxia Current Visit: Yes Status: Acute (2) Pneumonia due to COVID-19 virus Current Visit: Yes Status: Acute (3) HTN (hypertension) Current Visit: Yes Status: Chronic Qualifiers: Hypertension type: primary hypertension Qualified Code(s): I10 - Essential (primary) hypertension - Plan No major improvement over the last few days. Wean FiO2 and flow rates as tolerated Continue on COVID protocol with IV steroid, vitamin supplementation. Pulmonary is following. Patient on Baracitinib. Monitor inflammatory markers-ferritin and CRP. Continue sliding scale scale. Titrate Lantus insulin.
--- NOTE | 2021-05-11 17:37 | P.PN ---
Subjective Date of Service: 05/11/21 Chief Complaint: covid pneumonia No change in FiO2 requirement on the high-flow over the past few days. She has no complain. Physical Examination - Vital Signs Temperature: 97.9 F Blood Pressure: 139/64 Pulse: 68 Respirations: 18 Pulse Ox (%): 92 - Physical Exam General: Alert, In no apparent distress Neck: JVD not distended Respiratory: Other (Nonlabored breathing) Cardiovascular: No edema, Regular rate/rhythm, Normal S1 S2 Gastrointestinal: Soft and benign, Non-distended Musculoskeletal: No swelling Integumentary: No rashes Neurological: Normal strength at 5/5 x4 extr Assessment And Plan - Current Problems (Diagnosis) (1) Acute respiratory failure with hypoxia Current Visit: Yes Status: Acute (2) Pneumonia due to COVID-19 virus Current Visit: Yes Status: Acute (3) HTN (hypertension) Current Visit: Yes Status: Chronic Qualifiers: Hypertension type: primary hypertension Qualified Code(s): I10 - Essential (primary) hypertension - Plan Patient not improving over the last few days Wean FiO2 and flow rates as tolerated Continue on COVID protocol with IV steroid, vitamin supplementation. Continue Baracitinib. Monitor inflammatory markers-ferritin and CRP. Continue sliding scale scale. Titrate Lantus insulin.
[2021-05-12 06:04] LABS: C-Reactive Protein 9.05 mg/L (<3.00); Ferritin 98.8 ng/mL (8-388)
[2021-05-12] MEDS: VITAMIN D 1000 UNIT TAB PO SCH (08:46)
[2021-05-12] MEDS: ASPIRIN EC 81 MG TAB PO SCH (08:46)
[2021-05-12] MEDS: ASCORBIC ACID 500 MG TABLET PO SCH ×4 (08:47→21:00)
[2021-05-12] MEDS: INSULIN -REGULAR HUMAN 50 UNIT/0.5 ML ML SQ SCH ×4 (08:47→20:58)
[2021-05-12] MEDS: ZINC SULFATE 220 MG CAP PO SCH (08:47)
[2021-05-12] MEDS: THIAMINE HCL 100 MG TABLET PO SCH (08:47)
[2021-05-12] MEDS: METHYLPREDNISOLONE 125 MG INJ IV SCH ×3 (08:47→20:59)
[2021-05-12] MEDS: FAMOTIDINE 20 MG TAB PO SCH ×2 (08:47→20:59)
[2021-05-12] MEDS: BARICITINIB 2 MG TABLET PO SCH (08:48)
--- NOTE | 2021-05-12 08:58 | RAD REPORT ---
EXAM DESCRIPTION: RAD - Chest Single View - 05/12/2021 4:39 am CLINICAL HISTORY: hypoxia, covid Chest pain. COMPARISON: Chest Single View dated 05/09/2021; Chest Single View dated 05/06/2021 FINDINGS: Portable technique limits examination quality. Since 05/09/2021, extensive bilateral pulmonary opacities appear slightly progressive since prior hammad dy. The heart is mildly enlarged in size. No displaced fractures. IMPRESSION: Mild worsening in lung aeration is seen since comparative study.
--- NOTE | 2021-05-12 14:38 | P.PN ---
Subjective Date of Service: 05/12/21 Chief Complaint: covid pneumonia Subjective: Improving (less o2 requirement, feeling better, tolerating food, appetite ok, on 15L HFNC) Review of Systems 10-point ROS is otherwise unremarkable Physical Examination - Vital Signs Temperature: 98.8 F Blood Pressure: 167/83 Pulse: 69 Respirations: 18 Pulse Ox (%): 90 - Studies Microbiology Data (last 24 hrs): 05/06/21 23:45 Blood - Blood Aerobic Blood Culture - Final No growth in 5 days. 05/06/21 23:45 Blood - Blood Anaerobic Blood Culture - Final 05/06/21 23:45 Blood - Blood Aerobic Blood Culture - Final No growth in 5 days. 05/06/21 23:45 Blood - Blood Anaerobic Blood Culture - Final Assessment & Plan Physician Review Additional Text: Physical Exam General: Alert, In no apparent distress HEENT: Normal conjunctiva, sclera anicteric Respiratory: mild labored respirations on 15L HFNC Cardiovascular: No edema, Regular rate/rhythm, Normal S1 S2 Gastrointestinal: Soft and benign, Non-distended Musculoskeletal: No joint swelling Integumentary: No rashes Problem List Acute hypoxemic respiratory failure secondary to COVID-19 pneumonia Hypertension Diabetes mellitus type 2, dex-[id number]; new diagnosis Patient with some slight improvements today Continue treatments per Covid protocol, with IV steroids, vitamin supplementation, oxygen supplementation Pulmonology consulted Wean FiO2 and flow rates as tolerated Continue Baracitinib. Monitor inflammatory markers-ferritin and CRP. Continue sliding scale scale. Titrate Lantus again A1c: 8.9, steroid-induced hyperglycemia VTE: Dispo: anticipate dc home with O2 in ~3-4 days Time Spent Managing Pts Care (In Minutes): 35
[2021-05-12] MEDS ORDERED: INSULIN GLARGINE 100 UNITS/ML SQ SCH (17:00)
[2021-05-12] MEDS: RIVAROXABAN 20 MG TABLET PO SCH (17:39)
[2021-05-12 18:32] VITALS: O2SAT 82
[2021-05-12] MEDS ORDERED: INSULIN -REGULAR HUMAN 50 UNIT/0.5 ML ML IV ONE (21:00)
[2021-05-13 05:57] LABS: C-Reactive Protein 10.5 mg/L (<3.00); Ferritin 89.5 ng/mL (8-388)
[2021-05-13 05:58] LABS: Potassium 4.6 mmol/L (3.5-5.1)
[2021-05-13 05:59] LABS: Absolute Lymphocytes (CBC) 0.5 K/uL (0.7-4.9); Basophils % 0.1 % (0-1.3); Hematocrit 39.8 % (36.0-45.0); Lymphocytes % 3.4 % (15.3-44.8); MPV 8.9 fL (7.6-11.3); RBC Red Blood Cell Count 5.28 M/uL (3.86-4.86)
--- NOTE | 2021-05-13 06:29 | P.PN ---
Subjective Date of Service: 05/13/21 Chief Complaint: covid pneumonia Physical Examination - Vital Signs Temperature: 98.4 F Blood Pressure: 155/72 Pulse: 79 Respirations: 18 Pulse Ox (%): 85 Assessment & Plan Physician Review Additional Text: Physical Exam General: Alert, In no apparent distress HEENT: Normal conjunctiva, sclera anicteric Respiratory: mild labored respirations on 15L HFNC Cardiovascular: No edema, Regular rate/rhythm, Normal S1 S2 Gastrointestinal: Soft and benign, Non-distended Musculoskeletal: No joint swelling Integumentary: No rashes Problem List Acute hypoxemic respiratory failure secondary to COVID-19 pneumonia Hypertension Diabetes mellitus type 2, [id number]; new diagnosis Patient with some slight improvements today Continue treatments per Covid protocol, with IV steroids, vitamin supplementation, oxygen supplementation Pulmonology consulted Wean FiO2 and flow rates as tolerated Continue Baracitinib. Monitor inflammatory markers-ferritin and CRP. Continue sliding scale scale. Titrate Lantus again A1c: 8.9, steroid-induced hyperglycemia VTE: Dispo: anticipate dc home with O2 in ~3-4 days
[2021-05-13 08:26] VITALS: BP 148/69; TEMP 99
[2021-05-13] MEDS ORDERED: ONDANSETRON 4 MG/2 ML VIAL IV PRN (11:19)
[2021-05-13] MEDS ORDERED: ACETAMINOPHEN 500 MG TAB PO PRN (11:19)
[2021-05-13] MEDS ORDERED: BENZONATATE 100 MG CAP PO PRN (11:22)
[2021-05-13] MEDS ORDERED: GLUCAGON 1 MG/VIAL IM PRN (11:25)
[2021-05-13] MEDS ORDERED: MELATONIN 5 MG TABLET PO PRN (11:25)
[2021-05-13] MEDS ORDERED: D50W 25 GM/50 ML SYRINGE IV PRN (11:25)
[2021-05-13] MEDS ORDERED: MORPHINE 2 MG/ML SYR IV PRN (11:27)
[2021-05-13] MEDS ORDERED: INSULIN -REGULAR HUMAN 50 UNIT/0.5 ML ML SQ SCH (11:30)
--- NOTE | 2021-05-13 11:32 | P.HP ---
Certification for Inpatient Patient admitted to: Inpatient With expected LOS: >2 Midnights Practitioner: I am a practitioner with admitting privileges, knowledge of patient current condition, hospital course, and medical plan of care. Services: Services provided to patient in accordance with Admission requirements found in Title 42 Section 412.3 of the Code of Federal Regulations Patient History Date of Service: 05/13/21 Reason for admission: covid pneumonia History of Present Illness: Patient is a 55-year-old female with a past medical history significant for hypertension, DM 2 who presents with complaint of shortness of breath. Patient was admitted for COVID-19 pneumonia and patient left AMA this morning. Daughter spoke to patient and patient decided to return back to the ER for continuation of medical treatment. Patient denies any other signs or symptoms. Shortness of breath is aggravated by exertion and relieved by nothing. Allergies Penicillins Allergy (Severe, Verified 05/07/21 06:37) Anaphylaxis Home medications list reviewed: Yes Home Medications: NK [No Home Meds] 05/07/21 - Past Medical/Surgical History Has patient received pneumonia vaccine in the past: No Diabetic: No -: HTN -: cholecystectomy - Family History Mother -: Diabetes - Social History Smoking Status: Never smoker Alcohol use: No CD- Drugs: No Caffeine use: Yes Place of Residence: Home Review of Systems General: Unremarkable Eyes: Unremarkable ENT: Unremarkable Respiratory: Cough, Shortness of Breath, SOB with Excertion Cardiovascular: Unremarkable Gastrointestinal: Unremarkable Genitourinary: Unremarkable Musculoskeletal: Unremarkable Integumentary: Unremarkable Neurological: As per HPI Physical Examination - Vital Signs Temperature: 99.0 F Blood Pressure: 148/69 Pulse: 76 Respirations: 20 Pulse Ox (%): 88 - Physical Exam General: Alert, In no apparent distress, Oriented x3 HEENT: Atraumatic, PERRLA, Mucous membr. moist/pink, EOMI, Sclerae nonicteric Neck: Supple, 2+ carotid pulse no bruit, No LAD, Without JVD or thyroid abnormality Respiratory: Diminished Cardiovascular: Regular rate/rhythm, Normal S1 S2 Gastrointestinal: Normal bowel sounds, No tenderness Musculoskeletal: No clubbing, No tenderness Integumentary: No rashes, No breakdown Neurological: Normal gait, Normal speech, Normal tone, Normal affect Lymphatics: No axilla or inguinal lymphadenopathy External genitalia: Deferred Rectal: Deferred Assessment and Plan - Plan --Acute hypoxemic respiratory failure with hypoxia. Secondary to COVID-19 pneumonia. Continue baricitinib, high-dose steroids, O2 therapy and oral supplements. Further management per lens grinder --COVID-19 pneumonia. Continue current treatment regimen. --Hypertension. Stable. Will manage BP with labetalol as needed. --Diabetes mellitus type 2, [id number]. BS monitoring with s\s and Lantus --DVT prophylaxis with Xarelto. I have had discussion about advanced directives with the patient during this hospital admission. Addressed code status and /or goals of care. Spent more than 15 minutes. Case discussed withpatient and nurse. Discharge Plan: Home Plan to discharge in: 48 Hours - Advance Directives Does patient have a Living Will: No Does patient have a Durable POA for Healthcare: No - Code Status/Comfort Care Code Status Assessed: Yes Code Status: Full Code Physician Review: Patient Assessed, Agree with Above Assessment and Plan Critical Care: No
[2021-05-13] MEDS ORDERED: LABETALOL 20 MG/4ML SYRINGE IV PRN (11:43)
[2021-05-13] MEDS ORDERED: ASCORBIC ACID 500 MG TABLET PO SCH (13:00)
[2021-05-13] MEDS ORDERED: BARICITINIB 2 MG TABLET PO SCH (14:00)
[2021-05-13] MEDS ORDERED: METHYLPREDNISOLONE 125 MG INJ IV SCH (14:00)
--- NOTE | 2021-05-13 16:14 | P.DS ---
Admission Date: 05/07/21 Discharge Date: 05/13/21 Disposition: AMA-LEFT AGAINST MEDICAL ADVIC Reason for Admission: covid pneumonia Hospital Course: Patient presented with COVID-19 pneumonia. Had gradual improvement of symptoms. Weaned down to 6L NC. On morning of 05/13, patient was adamant on leaving AGAINST MEDICAL ADVICE. Patient's nurse and myself spent over 30 minutes trying to convince the patient to stay. Attempted to call patient's family, however had no answer. Patient was demanding to leave. Explained the risk of worsening COVID-19 pneumonia and the possibility of . I explained that a more unable to set up home oxygen for she leaves this way. I stated that she would likely be discharged in the next 1 to 2 days if she continued to improve as she had been. Patient expressed understanding. She stated she was tired and wanted to be home. She signed the AMA paperwork and left. Vital Signs/Physical Exam: Temp Pulse Resp BP Pulse Ox 99.0 F 76 20 148/69 H 88 L 05/13/21 11:57 05/13/21 11:57 05/13/21 11:57 05/13/21 11:57 05/13/21 11:57 General: Alert, In no apparent distress, Oriented x3 HEENT: Mucous membr. moist/pink, Sclerae nonicteric Respiratory: Other (nonlabored on 6L NC) Cardiovascular: No edema, Regular rate/rhythm Gastrointestinal: Soft and benign, Non-distended, No tenderness Musculoskeletal: No tenderness Integumentary: No rashes Laboratory Data at Discharge: WBC 13.40 K/uL (4.3-10.9) H D 05/13/21 04:58 Hgb 12.8 g/dL (12.0-15.0) 05/13/21 04:58 Hct 39.8 % (36.0-45.0) 05/13/21 04:58 Plt Count 406 K/uL (152-406) D 05/13/21 04:58 PT 11.5 SECONDS (9.5-12.5) 05/06/21 23:45 INR 1.00 05/06/21 23:45 APTT 21.9 SECONDS (24.3-36.9) L 05/06/21 23:45 Sodium 137 mmol/L (136-145) 05/13/21 04:58 Potassium 4.6 mmol/L (3.5-5.1) 05/13/21 04:58 BUN 21 mg/dL (7-18) H 05/13/21 04:58 Creatinine 0.70 mg/dL (0.55-1.3) 05/13/21 04:58 Glucose 241 mg/dL (74-106) H 05/13/21 04:58 Phosphorus 3.9 mg/dL (2.5-4.9) 05/08/21 05:48 Magnesium 2.8 mg/dL (1.8-2.4) H 05/08/21 05:48 Total Bilirubin 0.4 mg/dL (0.2-1.0) 05/08/21 05:48 AST 29 U/L (15-37) 05/08/21 05:48 ALT 32 U/L (12-78) 05/08/21 05:48 Alkaline Phosphatase 143 U/L (45-117) H 05/08/21 05:48 Triglycerides 144 mg/dL (<150) 05/08/21 05:48 Cholesterol 87 mg/dL (<200) 05/08/21 05:48 HDL Cholesterol 22 mg/dL (40-60) L 05/08/21 05:48 Cholesterol/HDL Ratio 3.95 05/08/21 05:48 Home Medications: NK [No Home Meds] 05/07/21 Followup: NONE,NONE [Primary Care Provider] - Time spent managing pt's care (in minutes): 40
[2021-05-13] MEDS ORDERED: RIVAROXABAN 20 MG TABLET PO SCH (17:00)
[2021-05-13] MEDS ORDERED: FAMOTIDINE 20 MG TAB PO SCH (21:00)
[2021-05-13] MEDS ORDERED: INSULIN GLARGINE 100 UNITS/ML SQ SCH (21:00)
[2021-05-14] MEDS ORDERED: ENOXAPARIN 40 MG/0.4 ML SQ SCH (09:00)
[2021-05-14] MEDS ORDERED: THIAMINE HCL 100 MG TABLET PO SCH (09:00)
[2021-05-14] MEDS ORDERED: ZINC SULFATE 220 MG CAP PO SCH (09:00)
[2021-05-14] MEDS ORDERED: ASPIRIN 81 MG CHEWABLE TABLET PO SCH (09:00)
[2021-05-14] MEDS ORDERED: VITAMIN D 1000 UNIT TAB PO SCH (09:00)
== END 2021-05-13 07:55 | disposition left against medical advice (07) | DRG 177 ==
LOC: ER 22:59 → ERHOLD 05-07 00:37 → 4TH 05-09 19:58
PROVIDERS: ADMIT Internal Medicine; ATTEND Internal Medicine
DX: U07.1 COVID-19 (principal); J12.82 Pneumonia due to coronavirus disease 2019; J96.01 Acute respiratory failure with hypoxia; I10 Essential (primary) hypertension; E11.65 Type 2 diabetes mellitus with hyperglycemia; T38.0X5A Adverse effect of glucocorticoids and synthetic analogues, initial encounter; Z53.29 Procedure and treatment not carried out because of patient's decision for other reasons; Z88.0 Allergy status to penicillin
CPT/HCPCS: 36415; 71045; 80048; 80053; 80061; 80076; 82728; 82805; 82947; 83036; 83605; 83735; 84100; 84145; 84439; 84443; 84484; 85025; 85379; 85610; 85730; 86140; 87040; 93005; 94002; 94003; 94760; 99285; J1815; J1940; J2920; J2930; U0003

== ENCOUNTER 2021-05-13 09:01 | Inpatient (IN) | payer SELFPAY ==
--- NOTE | 2021-05-13 10:09 | ER ---
Nurse's Notes [facility] Name: Cynthia Logan Age: 55 yrs Sex: Female : 1965 Arrival Date: 05/13/2021 Time: 09:02 Bed 14 Private MD: Diagnosis: Pneumonia due to SARS-associated coronavirus;Hypoxemia Presentation: 05/13 09:19 Chief complaint: Patient states: "I signed myself out on 4th floor just now and my ss daughter came and told me I needed to stay, so I'm back." COVID +. Coronavirus screen: Client denies travel out of the [place] in the last 14 days. Ebola Screen: Patient denies exposure to infectious person. Patient denies travel to an Ebola-affected area in the 21 days before illness onset. Initial Sepsis Screen: Does the patient meet any 2 criteria? No. Patient's initial sepsis screen is negative. Does the patient have a suspected source of infection? Yes: Other: COVID pneumonia. KNOWN. Risk Assessment: Do you want to hurt yourself or someone else? Patient reports no desire to harm self or others. Onset of symptoms is unknown. 09:19 Method Of Arrival: Wheelchair ss 09:19 Acuity: GENESIS 2 ss Historical: - Allergies: 09:20 PENICILLINS; ss - PMHx: 09:20 Hypertensive disorder; ss - Immunization history:: Client reports having NOT received the Covid vaccine. - Social history:: Smoking status: Patient denies any tobacco usage or history of. - Family history:: not pertinent. - Hospitalizations: : The patient was recently seen at [facility]. Assessment: 05/15 18:18 Reassessment: patient received d/c instructions. Patient daughter brought O2 to ER. zb patient wheeled out IV wheelchair. Vital Signs: 05/13 09:19 BP 132 / 71; Pulse 90; Resp 22; Temp 98.6(TE); Pulse Ox 67% on R/A; Weight 117.93 kg; ss Height 5 ft. 1 in. (154.94 cm); Pain 0/10; 09:20 Pulse Ox 96% on 6 lpm NC; ss 13:13 BP 97 / 75; Pulse 65; Resp 20; Pulse Ox 95% on 6 lpm NC; tw2 09:19 Body Mass Index 49.12 (117.93 kg, 154.94 cm) ED Course: 09:02 Patient arrived in ED. ds1 09:20 Triage completed. ss 09:20 Arm band placed on right wrist. ss 09:45 Yousif Laguerre MD is Attending Physician. rn 10:09 Cedric Laguerre MD is Hospitalizing Provider. rn 12:49 Eneida Rodríguez, RN is Primary Nurse. tw2 12:59 Inserted saline lock: 20 gauge in left antecubital area, using aseptic technique. Blood mt collected. 05/15 06:32 Primary Nurse role handed off by Eneida Rodríguez RN eb 10:27 Anika Castellanos, RN is Primary Nurse. jl7 Administered Medications: No medications were administered Outcome: 05/13 10:09 Decision to Hospitalize by Provider. rn 08 18:19 Discharged to home via wheelchair, with family. zb Condition: stable Discharge instructions given to patient, Instructed on discharge instructions, follow up and referral plans. medication usage, Demonstrated understanding of instructions, follow-up care, medications, Prescriptions given X notified in [facility]. 18:20 Patient left the ED. zb Signatures: Steffi Van ds1 Yousif Laguerre MD MD rn Smirch, Shelby, RN RN Eneida Rodríguez RN RN tw2 Anika Castellanos RN RN jl7 Nery Weiss mt, Elizabeth eb Brown, Zipporah, RN RN zb Corrections: (The following items were deleted from the chart) 05/13 09:45 09:19 BP 132 / 71; Pulse 90bpm; Resp 22bpm; Pulse Ox 97% RA; Temp 98.6F Temporal; ss 117.93 kg; Height 5 ft. 1 in.; BMI: 49.1; Pain 0/10; ss
--- NOTE | 2021-05-13 10:10 | EDPHYS ---
Physician Documentation [facility] Name: Cynthia Logan Age: 55 yrs Sex: Female : 1965 Arrival Date: 05/13/2021 Time: 09:02 Bed 14 Private MD: ED Physician Yousif Laguerre HPI: 05/13 10:05 This 55 yrs old Female presents to ER via Wheelchair with complaints of Covid rn + Low O2. 10:05 The patient has shortness of breath at rest, with light activity. Onset: The rn symptoms/episode began/occurred 2 week(s) ago. Duration: The symptoms are intermittent. The patient's shortness of breath is aggravated by exertion, light activity, is alleviated by application of supplemental oxygen. Associated signs and symptoms: Pertinent negatives: chest pain, fever, hemoptysis. Severity of symptoms: At their worst the symptoms were mild in the emergency department the symptoms are unchanged. The patient has not experienced similar symptoms in the past. The patient has been recently been admitted at [facility]. Patient returned shortly after leaving AMA approximately 1 hour ago. Patient with Covid pneumonia. Patient with low oxygen and oxygen requirement, no home oxygen set up yet. Reports shortness of breath mainly with exertion. O2 saturation 67% on room air. Patient left due to frustration and feeling like nothing was being done, daughter talked to her and convince her to return.. Historical: - Allergies: 09:20 PENICILLINS; ss - PMHx: 09:20 Hypertensive disorder; ss - Immunization history:: Client reports having NOT received the Covid vaccine. - Social history:: Smoking status: Patient denies any tobacco usage or history of. - Family history:: not pertinent. - Hospitalizations: : The patient was recently seen at [facility]. ROS: 10:05 Constitutional: Negative for fever, chills, and weight loss, Eyes: Negative for injury, rn pain, redness, and discharge, Neck: Negative for injury, pain, and swelling, Cardiovascular: Negative for chest pain, palpitations, and edema, Respiratory: Positive for shortness of breath Abdomen/GI: Negative for abdominal pain, nausea, vomiting, diarrhea, and constipation, Back: Negative for injury and pain, : Negative for injury, bleeding, discharge, and swelling, MS/Extremity: Negative for injury and deformity, Skin: Negative for injury, rash, and discoloration, Neuro: Negative for headache, numbness, tingling, and seizure. 10:05 All other systems are negative. Exam: 10:05 Constitutional: This is a well developed, well nourished patient who is awake, alert, rn and in no acute distress. Sitting in wheelchair with mild tachypnea Head/Face: Normocephalic, atraumatic. Eyes: Periorbital areas with no swelling, redness, or edema. ENT: No stridor Cardiovascular: Regular rate and rhythm. No pulse deficits. Respiratory: Mild tachypnea, speaking full sentences. No retractions Skin: Warm, dry, no cyanosis MS/ Extremity: Pulses equal, no cyanosis. Neuro: Awake and alert, GCS 15 Vital Signs: 09:19 BP 132 / 71; Pulse 90; Resp 22; Temp 98.6(TE); Pulse Ox 67% on R/A; Weight 117.93 kg; ss Height 5 ft. 1 in. (154.94 cm); Pain 0/10; 09:20 Pulse Ox 96% on 6 lpm NC; ss 13:13 BP 97 / 75; Pulse 65; Resp 20; Pulse Ox 95% on 6 lpm NC; tw2 09:19 Body Mass Index 49.12 (117.93 kg, 154.94 cm) MDM: 10:07 Differential diagnosis: pneumonia, Covid, pulmonary edema, hypoxia. Antibiotic rn administration: Not indicated. Data reviewed: vital signs, nurses notes, old medical records, radiologic studies, plain films, and as a result, I will admit patient. Data interpreted: tank welder: rate is 90 beats/min, rhythm is normal sinus rhythm, regular, with no ectopy, Interpretation: normal rate, normal rhythm, Pulse oximetry: on room air is 67 %. Interpretation: hypoxia. Plan: O2 by NC applied. Counseling: I had a detailed discussion with the patient and/or guardian regarding: the historical points, exam findings, and any diagnostic results supporting the discharge/admit diagnosis, lab results, radiology results, the need for further work-up and treatment in the hospital. Admission orders: after a detailed discussion of the patient's condition and case, the admit orders are written by me. ED course: Patient with labs this a.m. as well as recent chest x-ray. Labs and imaging not repeated given no gross change. Will need to readmit given hypoxia and oxygen requirement.. 10:09 Patient medically screened. rn 05/13 16:23 Order name: Glucose, Ancillary Testing; Complete Time: 17:05 EDMS 05/13 20:55 Order name: Glucose, Ancillary Testing EDMS 05/14 04:09 Order name: C-Reactive Protein EDMS 05/14 07:27 Order name: CBC with Automated Diff EDMS 05/14 07:44 Order name: CBC Smear Scan EDMS 05/14 08:01 Order name: Comprehensive Metabolic Panel EDMS 05/14 08:01 Order name: Magnesium EDMS 05/14 08:01 Order name: Ferritin EDMS 05/14 08:55 Order name: Glucose, Ancillary Testing EDMS 05/14 11:47 Order name: Glucose, Ancillary Testing EDMS 05/14 12:40 Order name: Glucose, Ancillary Testing EDMS 05/14 17:43 Order name: Glucose, Ancillary Testing EDMS 05/14 20:58 Order name: Glucose, Ancillary Testing EDMS 05/15 03:41 Order name: CBC with Automated Diff EDMS 05/13 09:52 Order name: IV Start; Complete Time: 12:59 rn 05/13 09:52 Order name: O2 Sat Monitoring; Complete Time: 12:59 rn 05/13 09:52 Order name: O2 Per Protocol; Complete Time: 12:59 rn 05/13 09:52 Order name: Cardiac monitoring; Complete Time: 12:59 rn 05/13 12:49 Order name: Diet Regular: VEGETARIAN; Complete Time: 12:49 05/14 08:04 Order name: RAD EDMS 05/15 04:01 Order name: Basic Metabolic Panel EDMS 05/15 04:01 Order name: C-Reactive Protein EDMS 05/15 04:01 Order name: Magnesium EDMS 05/15 04:01 Order name: Ferritin EDMS 05/15 07:52 Order name: Glucose, Ancillary Testing EDMS 05/15 09:42 Order name: Liver (Hepatic) Function EDMS 05/15 12:34 Order name: Glucose, Ancillary Testing EDMS 05/15 17:20 Order name: Glucose, Ancillary Testing EDMS Administered Medications: No medications were administered Disposition Summary: 05/13/21 10:09 Hospitalization Ordered Hospitalization Status: Inpatient Admission rn Provider: Cedric Laguerre rn Condition: Stable rn Problem: an ongoing problem rn Symptoms: are unchanged rn Bed/Room Type: Standard rn Location: [facility] ER HOLD(05/13/21 14:21) Room Assignment: ERHOLD-(05/13/21 14:21) bd Diagnosis - Pneumonia due to SARS-associated coronavirus rn - Hypoxemia rn Forms: - Medication Reconciliation Form rn - SBAR form rn Signatures: Dispatcher [employer] EDOK Katherine Davison Yousif Laguerre MD MD rn Smirch, Shelby, RN RN ss Corrections: (The following items were deleted from the chart) 09:36 09:05 Chest Pa And Lat (2 Views)+[email or web address] ordered. EDOK EDMS 09:43 09:36 Chest Single View ordered. EDOK EDOK 14:21 10:09 Telemetry/MedSurg (Inpatient) rn bd 14:21 10:09 rn bd
--- NOTE | 2021-05-13 12:31 | P.HP ---
Certification for Inpatient Patient admitted to: Inpatient With expected LOS: >2 Midnights Practitioner: I am a practitioner with admitting privileges, knowledge of patient current condition, hospital course, and medical plan of care. Services: Services provided to patient in accordance with Admission requirements found in Title 42 Section 412.3 of the Code of Federal Regulations Patient History Date of Service: 05/13/21 Reason for admission: Covid 19 PNA History of Present Illness: Patient is a 55-year-old female with a past medical history significant for hypertension, DM 2 who presents with complaint of shortness of breath. Patient was admitted for COVID-19 pneumonia and patient left AMA this morning. Daughter spoke to patient and patient decided to return back to the ER for continuation of medical treatment. Patient denies any other signs or symptoms. Shortness of breath is aggravated by exertion and relieved by nothing. Allergies Penicillins Allergy (Severe, Verified 05/07/21 06:37) Anaphylaxis Home Medications: NK [No Home Meds] 05/07/21 - Past Medical/Surgical History Diabetic: No -: HTN -: cholecystectomy - Family History Mother -: Diabetes - Social History Smoking Status: Unknown if ever smoked Alcohol use: No CD- Drugs: No Caffeine use: Yes Review of Systems General: Unremarkable Eyes: Unremarkable ENT: Unremarkable Respiratory: Cough, Shortness of Breath, SOB with Excertion Cardiovascular: Unremarkable Gastrointestinal: Unremarkable Musculoskeletal: Unremarkable Integumentary: Unremarkable Neurological: Unremarkable Physical Examination - Physical Exam General: Alert, In no apparent distress, Oriented x3 HEENT: Atraumatic, PERRLA, Mucous membr. moist/pink, EOMI, Sclerae nonicteric Neck: Supple, 2+ carotid pulse no bruit, No LAD, Without JVD or thyroid abnormality Respiratory: Clear to auscultation bilaterally, Normal air movement Cardiovascular: Regular rate/rhythm, Normal S1 S2 Capillary refill: <2 Seconds Gastrointestinal: Normal bowel sounds, No tenderness Musculoskeletal: No clubbing, No tenderness Integumentary: No rashes Neurological: Normal gait, Normal speech, Normal tone, Normal affect Lymphatics: No axilla or inguinal lymphadenopathy External genitalia: Deferred Rectal: Deferred Assessment and Plan - Plan --Acute hypoxemic respiratory failure with hypoxia. Secondary to COVID-19 pneumonia. Continue baricitinib, high-dose steroids, O2 therapy and oral supplements. Further management per cut file clerk --COVID-19 pneumonia. Continue current treatment regimen. --Hypertension. Stable. Will manage BP with labetalol as needed. --Diabetes mellitus type 2, [id number]. BS monitoring with s\s and Lantus --DVT prophylaxis with Xarelto. I have had discussion about advanced directives with the patient during this hospital admission. Addressed code status and /or goals of care. Spent more than 15 minutes. Discharge Plan: Home Plan to discharge in: 48 Hours - Advance Directives Does patient have a Living Will: No Does patient have a Durable POA for Healthcare: No - Code Status/Comfort Care Code Status Assessed: Yes Code Status: Full Code Physician Review: Patient Assessed, Agree with Above Assessment and Plan Critical Care: No
[2021-05-13] MEDS ORDERED: GLUCAGON 1 MG/VIAL IM PRN (15:38)
[2021-05-13] MEDS ORDERED: D50W 25 GM/50 ML SYRINGE IV PRN (15:38)
[2021-05-13] MEDS ORDERED: MORPHINE 2 MG/ML SYR IV PRN (15:42)
[2021-05-13] MEDS ORDERED: ONDANSETRON 4 MG/2 ML VIAL IV PRN ×2 (15:43→15:45)
[2021-05-13] MEDS ORDERED: ACETAMINOPHEN 500 MG TAB PO PRN (15:45)
[2021-05-13] MEDS ORDERED: MELATONIN 5 MG TABLET PO PRN (15:45)
[2021-05-13] MEDS ORDERED: BENZONATATE 100 MG CAP PO PRN (15:46)
[2021-05-13] MEDS ORDERED: LABETALOL 20 MG/4ML SYRINGE IV PRN (16:00)
[2021-05-13] MEDS ORDERED: INSULIN GLARGINE 100 UNITS/ML SQ ONE (16:51)
[2021-05-13] MEDS: ASCORBIC ACID 500 MG TABLET PO SCH ×2 (17:14→21:00)
[2021-05-13] MEDS: INSULIN GLARGINE 100 UNITS/ML SQ SCH (17:14)
[2021-05-13] MEDS: RIVAROXABAN 20 MG TABLET PO SCH (17:14)
[2021-05-13] MEDS: INSULIN -REGULAR HUMAN 50 UNIT/0.5 ML ML SQ SCH ×2 (17:14→21:00)
[2021-05-13] MEDS ORDERED: ASCORBIC ACID 500 MG TABLET ONE ×2 (17:24→21:19)
[2021-05-13] MEDS ORDERED: RIVAROXABAN 20 MG TABLET PO ONE (17:25)
[2021-05-13] MEDS ORDERED: INSULIN -REGULAR HUMAN 50 UNIT/0.5 ML ML ONE ×2 (17:33→21:20)
[2021-05-13] MEDS: METHYLPREDNISOLONE 40 MG INJ IV SCH (21:00)
[2021-05-13] MEDS: FAMOTIDINE 20 MG TAB PO SCH (21:00)
[2021-05-13] MEDS ORDERED: METHYLPREDNISOLONE 40 MG INJ ONE (21:19)
[2021-05-13] MEDS ORDERED: FAMOTIDINE 20 MG TAB ONE (21:20)
[2021-05-14 07:22] LABS: Absolute Lymphocytes (CBC) 0.3 K/uL (0.7-4.9); Basophils % 0.4 % (0-1.3); Hematocrit 40.3 % (36.0-45.0); Lymphocytes % 2.3 % (15.3-44.8); MPV 8.2 fL (7.6-11.3)
[2021-05-14 07:43] LABS: Blood Morphology Comment NOT SEEN (NOT SEEN); Platelet Estimate INCR; White Blood Cell Scan OK (OK)
[2021-05-14 08:01] LABS: ALT/SGPT 30 U/L (12-78); AST/SGOT 10 U/L (15-37); Alkaline Phosphatase 103 U/L (45-117); BUN Blood Urea Nitrogen 21 mg/dL (7-18); Bicarbonate 27 mmol/L (21-32); Bilirubin Total 0.8 mg/dL (0.2-1.0); Ferritin 100.4 ng/mL (8-388); Glucose Level 240 mg/dL (74-106); Magnesium 2.8 mg/dL (1.8-2.4); Potassium 4.3 mmol/L (3.5-5.1); Protein, Total 6.9 g/dL (6.4-8.2); Sodium Level 134 mmol/L (136-145)
--- NOTE | 2021-05-14 08:04 | RAD REPORT ---
EXAM DESCRIPTION: Cynthia Single View05/14/2021 7:47 am CLINICAL HISTORY: Hypoxia COMPARISON: May 12 FINDINGS: No significant change moderate bilateral pulmonary opacities. The heart is normal size IMPRESSION: No significant change in bilateral pulmonary opacities probably pneumonia
[2021-05-14] MEDS: VITAMIN D 1000 UNIT TAB PO SCH (08:59)
[2021-05-14] MEDS: THIAMINE HCL 100 MG TABLET PO SCH (08:59)
[2021-05-14] MEDS: FAMOTIDINE 20 MG TAB PO SCH ×2 (08:59→20:45)
[2021-05-14] MEDS: ZINC SULFATE 220 MG CAP PO SCH (08:59)
[2021-05-14] MEDS: INSULIN -REGULAR HUMAN 50 UNIT/0.5 ML ML SQ SCH ×4 (08:59→20:44)
[2021-05-14] MEDS: ASCORBIC ACID 500 MG TABLET PO SCH ×4 (08:59→20:45)
[2021-05-14] MEDS: METHYLPREDNISOLONE 40 MG INJ IV SCH ×3 (08:59→20:45)
[2021-05-14] MEDS: ASPIRIN 81 MG CHEWABLE TABLET PO SCH (08:59)
[2021-05-14] MEDS ORDERED: BARICITINIB 2 MG TABLET PO SCH (09:00)
[2021-05-14] MEDS ORDERED: INSULIN -REGULAR HUMAN 50 UNIT/0.5 ML ML ONE ×4 (09:12→21:03)
[2021-05-14] MEDS ORDERED: ASCORBIC ACID 500 MG TABLET ONE ×3 (09:13→21:02)
[2021-05-14] MEDS ORDERED: THIAMINE HCL 100 MG TABLET ONE (09:13)
[2021-05-14] MEDS ORDERED: VITAMIN D 1000 UNIT TAB ONE (09:13)
[2021-05-14] MEDS ORDERED: ASPIRIN EC 81 MG TAB PO ONE (09:13)
[2021-05-14] MEDS ORDERED: FAMOTIDINE 20 MG TAB ONE ×2 (09:14→21:02)
[2021-05-14] MEDS ORDERED: METHYLPREDNISOLONE 40 MG INJ ONE ×3 (09:14→21:02)
[2021-05-14] MEDS ORDERED: REMDESIVIR (EUA) 200 MG in NA CHLORIDE 0.9% 250 ML IV ONE (11:00)
--- NOTE | 2021-05-14 16:14 | P.PN ---
Subjective Date of Service: 05/14/21 Chief Complaint: Covid 19 PNA Subjective: Improving (Feels slightly better than yesterday, on 5-6 L nasal cannula. No new complaints. Appetite okay) Review of Systems 10-point ROS is otherwise unremarkable Physical Examination - Vital Signs Temperature: 98.9 F Blood Pressure: 140/73 Pulse: 85 Respirations: 18 Pulse Ox (%): 93 Assessment & Plan Physician Review Additional Text: Physical Exam General: Alert, In no apparent distress HEENT: Normal conjunctiva, sclera anicteric Respiratory: mild labored respirations on 6L NC Cardiovascular: No edema, Regular rate/rhythm, Normal S1 S2 Gastrointestinal: Soft and benign, Non-distended Integumentary: No rashes Problem List Acute hypoxemic respiratory failure secondary to COVID-19 pneumonia Hypertension Diabetes mellitus type 2, [id number]; new diagnosis Patient reports doing okay on 6 L nasal cannula, slight improvement compared to yesterday Continue treatments per Covid protocol, with IV steroids, vitamin supplementation, oxygen supplementation Pulmonology consulted Wean FiO2 as tolerated Received baricitinib prior to leaving AMA Monitor inflammatory markers-ferritin and CRP. Continue sliding scale scale. Titrate Lantus A1c: 8.9, steroid-induced hyperglycemia Dispo: anticipate dc home with O2 in ~1-2 days Time Spent Managing Pts Care (In Minutes): 35
[2021-05-14] MEDS: RIVAROXABAN 20 MG TABLET PO SCH (17:00)
[2021-05-14] MEDS: INSULIN GLARGINE 100 UNITS/ML SQ SCH (17:00)
[2021-05-14] MEDS ORDERED: RIVAROXABAN 20 MG TABLET PO ONE (18:00)
[2021-05-14] MEDS ORDERED: INSULIN GLARGINE 100 UNITS/ML SQ ONE (18:00)
[2021-05-15 03:27] LABS: Absolute Lymphocytes (CBC) 0.3 K/uL (0.7-4.9); Basophils % 0.2 % (0-1.3); Hematocrit 35.4 % (36.0-45.0); Lymphocytes % 3.1 % (15.3-44.8); MPV 8.7 fL (7.6-11.3); RBC Red Blood Cell Count 4.65 M/uL (3.86-4.86)
[2021-05-15 04:01] LABS: BUN Blood Urea Nitrogen 21 mg/dL (7-18); Bicarbonate 31 mmol/L (21-32); Ferritin 89.2 ng/mL (8-388); Glucose Level 247 mg/dL (74-106); Magnesium 2.7 mg/dL (1.8-2.4); Potassium 4.2 mmol/L (3.5-5.1); Sodium Level 137 mmol/L (136-145)
[2021-05-15 04:34] VITALS: TEMP 98.5
[2021-05-15] MEDS: INSULIN -REGULAR HUMAN 50 UNIT/0.5 ML ML SQ SCH ×3 (07:30→16:30)
[2021-05-15] MEDS: VITAMIN D 1000 UNIT TAB PO SCH (09:00)
[2021-05-15] MEDS: METHYLPREDNISOLONE 40 MG INJ IV SCH ×2 (09:00→13:01)
[2021-05-15] MEDS: THIAMINE HCL 100 MG TABLET PO SCH (09:00)
[2021-05-15] MEDS: ZINC SULFATE 220 MG CAP PO SCH (09:00)
[2021-05-15] MEDS ORDERED: REMDESIVIR (EUA) 100 MG in NA CHLORIDE 0.9% 250 ML IV SCH ×4 (09:00)
[2021-05-15] MEDS: FAMOTIDINE 20 MG TAB PO SCH (09:00)
[2021-05-15] MEDS: ASPIRIN 81 MG CHEWABLE TABLET PO SCH (09:00)
[2021-05-15] MEDS: ASCORBIC ACID 500 MG TABLET PO SCH ×3 (09:00→17:00)
[2021-05-15] MEDS ORDERED: ASPIRIN EC 81 MG TAB PO ONE (09:16)
[2021-05-15] MEDS ORDERED: VITAMIN D 1000 UNIT TAB ONE (09:16)
[2021-05-15] MEDS ORDERED: ZINC SULFATE 220 MG CAP ONE (09:16)
[2021-05-15] MEDS ORDERED: METHYLPREDNISOLONE 40 MG INJ ONE ×2 (09:16→13:08)
[2021-05-15] MEDS ORDERED: FAMOTIDINE 20 MG TAB ONE (09:16)
[2021-05-15] MEDS ORDERED: ASCORBIC ACID 500 MG TABLET ONE ×3 (09:16→17:41)
[2021-05-15] MEDS ORDERED: THIAMINE HCL 100 MG TABLET ONE (09:18)
[2021-05-15] MEDS ORDERED: INSULIN -REGULAR HUMAN 50 UNIT/0.5 ML ML ONE ×3 (09:19→17:41)
[2021-05-15 09:42] LABS: Albumin 2.7 g/dL (3.4-5.0); Bilirubin Direct 0.2 mg/dL (0-0.2); Bilirubin Total 0.6 mg/dL (0.2-1.0); Protein, Total 6.3 g/dL (6.4-8.2)
[2021-05-15 10:28] VITALS: BMI 49.1
[2021-05-15 13:03] VITALS: BP 113/84
--- NOTE | 2021-05-15 13:40 | P.DS ---
Admission Date: 05/13/21 Discharge Date: 05/15/21 Disposition: ROUTINE DISCHARGE Discharge Condition: GOOD Reason for Admission: Covid 19 PNA Consultations: Pulmonology - Dr. Marvin Procedures: CXR (05/14): FINDINGS: No significant change moderate bilateral pulmonary opacities. The heart is normal size IMPRESSION: No significant change in bilateral pulmonary opacities probably pneumonia Problem List Acute hypoxemic respiratory failure secondary to COVID-19 pneumonia Hypertension Diabetes mellitus type 2, jyc-[id number]; new diagnosis Brief History of Present Illness: 55-year-old female with a past medical history significant for hypertension, DM 2 who presents with complaint of shortness of breath. Patient was admitted for COVID-19 pneumonia and patient left AMA this morning. Daughter spoke to patient and patient decided to return back to the ER for continuation of medical treatment. Patient denies any other signs or symptoms. Shortness of breath is aggravated by exertion and relieved by nothing. Hospital Course: Patient had gradual improvement with treatment per COVID protocol. On day of discharge, she was stable on 3-4 L nasal cannula, ambulating, tolerating p.o. She was discharged home with steroids, vitamin supplementation, oxygen supplementation. During her hospitalization last week (when she left AMA), she was found to have elevated HgbA1c and new diagnosis of diabetes. On discharge she was recommended to start Metformin, and insulin 70/30. During her hospitalization, she was requiring Lantus 30 units as well as monitor doses of insulin for sliding scale. She was advised to monitor her blood glucose levels, and follow-up with her PCP for further adjustments. Follow-up with Dr. Marvin in 1 week. Vital Signs/Physical Exam: Physical Exam General: Alert, In no apparent distress HEENT: Normal conjunctiva, sclera anicteric Respiratory: nonlabored respirations on 3L NC Cardiovascular: No edema, Regular rate/rhythm, Normal S1 S2 Gastrointestinal: Soft and benign, Non-distended Integumentary: No rashes Temp Pulse Resp BP Pulse Ox 98.5 F 70 18 113/84 97 05/15/21 04:00 05/15/21 12:00 05/15/21 12:00 05/15/21 12:00 05/15/21 12:00 Laboratory Data at Discharge: WBC 9.30 K/uL (4.3-10.9) D 05/15/21 02:57 Hgb 11.6 g/dL (12.0-15.0) L 05/15/21 02:57 Hct 35.4 % (36.0-45.0) L 05/15/21 02:57 Plt Count 388 K/uL (152-406) 05/15/21 02:57 Sodium 137 mmol/L (136-145) 05/15/21 02:57 Potassium 4.2 mmol/L (3.5-5.1) 05/15/21 02:57 BUN 21 mg/dL (7-18) H 05/15/21 02:57 Creatinine 0.60 mg/dL (0.55-1.3) 05/15/21 02:57 Glucose 247 mg/dL (74-106) H 05/15/21 02:57 Magnesium 2.7 mg/dL (1.8-2.4) H 05/15/21 02:57 Total Bilirubin 0.6 mg/dL (0.2-1.0) 05/15/21 09:02 AST 8 U/L (15-37) L 05/15/21 09:02 ALT 24 U/L (12-78) 05/15/21 09:02 Alkaline Phosphatase 94 U/L (45-117) 05/15/21 09:02 Home Medications: Ascorbic Acid [Vitamin C*] 500 mg PO QID 30 Days #120 tablet 05/15/21 Aspirin [Aspirin EC 81 MG] 2 tab PO DAILY #30 tablet. 05/15/21 Benzonatate [Tessalon Perle*] 100 mg PO TID PRN 7 Days #21 cap 05/15/21 Blood Sugar Diagnostic [Blood Glucose Test] 1 each MC TID 30 Days #90 strip 05/15/21 Blood-Glucose Meter [Blood Glucose Meter] 1 each MC DAILY 30 Days #1 each 04/27 Cholecalciferol (Vitamin D3) [Vitamin D 1000 Iu Tab*] 4,000 unit PO DAILY 30 Days #120 tab 05/15/21 Insulin 70/30 NPH/Reg Human [Novolin 70/30*] 10 unit SQ BID 30 Days #6 ml 05/15/21 Metformin HCl [Glucophage*] 500 mg PO BIDWM 30 Days #60 tab 05/15/21 predniSONE [Prednisone] 20 mg PO SEECOM 14 Days #21 tablet 05/15/21 New Medications: Aspirin [Aspirin EC 81 MG] 2 tab PO DAILY #30 tablet. Blood-Glucose Meter [Blood Glucose Meter] 1 each MC DAILY 30 Days #1 each Blood Sugar Diagnostic [Blood Glucose Test] 1 each MC TID 30 Days #90 strip Metformin HCl [Glucophage*] 500 mg PO BIDWM 30 Days #60 tab Insulin 70/30 NPH/Reg Human [Novolin 70/30*] 10 unit SQ BID 30 Days #6 ml predniSONE [Prednisone] 20 mg PO SEECOM 14 Days #21 tablet Benzonatate [Tessalon Perle*] 100 mg PO TID PRN 7 Days #21 cap PRN Reason: Cough Ascorbic Acid [Vitamin C*] 500 mg PO QID 30 Days #120 tablet Cholecalciferol (Vitamin D3) [Vitamin D 1000 Iu Tab*] 4,000 unit PO DAILY 30 Days #120 tab Physician Discharge Instructions: You are found to have COVID-19 pneumonia. You had gradual improvement of your symptoms, treatment with steroids, vitamin supplementation, oxygen supplementation. You are also on found to have significantly elevated blood glucose levels. Your hemoglobin A1c was greater than 8, indicating this has been ongoing for several months and in correlation with the diagnosis of diabetes. Steroids you are prescribed will also increase your blood glucose levels temporarily. You are discharged with insulin, to take twice a dayin the morning and at night. You may only need this while taking the steroids. You are also discharged with a pill for your diabetes, Metformin. Please check your blood glucose levels at home. Please follow-up with your primary care doctor in the next week. Record your blood glucose levels and take with you so they have further instructions to change your dosing of insulin. Follow-up with Dr. Marvin (burglar alarm assembler) in 1 week. Please call his office to schedule a telephone appointment. Diet: ADA Activity: Ad joyce Followup: NONE,NONE [Primary Care Provider] - Time spent managing pt's care (in minutes): 40
[2021-05-15] MEDS: INSULIN GLARGINE 100 UNITS/ML SQ SCH (17:00)
[2021-05-15] MEDS ORDERED: RIVAROXABAN 20 MG TABLET PO SCH (17:00)
[2021-05-15] MEDS ORDERED: INSULIN GLARGINE 100 UNITS/ML SQ ONE (17:40)
[2021-05-15] MEDS ORDERED: RIVAROXABAN 20 MG TABLET PO ONE (17:41)
[2021-05-15 17:52] VITALS: O2SAT 98
== END 2021-05-15 18:15 | disposition home or self-care (01) | DRG 177 ==
LOC: ER 09:01 → ERHOLD 15:34
PROVIDERS: ADMIT Hospitalist; ATTEND Hospitalist
DX: U07.1 COVID-19 (principal); J12.82 Pneumonia due to coronavirus disease 2019; J96.01 Acute respiratory failure with hypoxia; I10 Essential (primary) hypertension; E11.9 Type 2 diabetes mellitus without complications; Z88.0 Allergy status to penicillin
CPT/HCPCS: 36415; 71045; 80048; 80053; 80076; 82728; 82947; 83735; 85025; 86140; 99283; J1815; J2920; J7050